=== PATIENT | male | born 1945 | race Caucasian/White ===

== ENCOUNTER 2016-07-18 14:47 | Inpatient (IN) | payer MEDICARE ==
[~2016-07-18] VITALS: Ht 180.3 cm; Wt 72.6 kg
[2016-07-18 15:42] LABS: Basophils # (auto) 0.1 uL; Basophils % (auto) 0.6 % (0.0-2.0); Eosinophils # (auto) 0.1 uL; Eosinophils % (auto) 1.7 % (0.0-7.0); Hematocrit 50.8 % (41.0-53.0); Hemoglobin 16.2 g/dL (13.5-17.5); Lymphocytes # (auto) 1.4 uL; Lymphocytes % (auto) 16.7 % (10.0-50.0); Mean Corpuscular Hemoglobin 28.9 pg (28.0-32.0); Mean Corpuscular Hgb Conc. 31.8 g/dL (32.0-36.0); Mean Corpuscular Volume 90.8 fL (80.0-100.0); Mean Platelet Volume 9.2 fL (7.4-10.4); Monocytes # (auto) 0.5 uL; Monocytes % (auto) 6.1 % (0.0-12.0); Neutrophils # (auto) 6.2 uL; Neutrophils % (auto) 74.9 % (37.0-80.0); Platelet Count (auto) 215 10^3/uL (140-450); Red Cell Distribution Width 14.8 % (11.6-16.0); White Blood Cell 8.2 10^3/uL (4.4-10.8)
[2016-07-18 15:50] LABS: BUN/Creatinine Ratio 13.6; Calcium 9.4 mg/dL (8.5-10.1); INR 1.11 (0.9-1.15); Partial Thromboplastin Time 24.5 sec (22.64-33.71); Potassium 4.3 mmol/L (3.5-5.1); Prothrombin Time 11.4 sec (9.37-12.3)
[2016-07-18 15:59] LABS: Bilirubin, Total 0.6 mg/dL (0.2-1.0); Total Protein 7.5 g/dL (6.4-8.2)
[2016-07-18 16:29] LABS: B-Type Natriuretic Peptide 493.09 pg/mL (0-100)
[2016-07-18 16:30] LABS: Temperature: 22.3 C (20.0-25.0)
[2016-07-18] MEDS ORDERED: SODIUM CHLORIDE 0.9% 1,000 ML IVB ONE (18:06)
[2016-07-18] MEDS ORDERED: ASPirin 81 mg TAB PO ONE (18:15)
[2016-07-18] MEDS ORDERED: ENOXAPARIN SOD 80 MG/0.8ML SYRINGE SC ONE (18:15)
[2016-07-18] MEDS ORDERED: LORazepam 0.5 MG TAB PO PRN (19:00)
[2016-07-18] MEDS ORDERED: ZOLPIDEM TARTRATE 5 MG TAB PO PRN (19:00)
[2016-07-18] MEDS ORDERED: ALUM & MAG HYDROX-SIMETH LIQ(MAALOX) 30 ML PO PRN (19:00)
[2016-07-18] MEDS ORDERED: NITROGLYCERIN 0.4 MG SL TAB SL PRN ×2 (19:00)
[2016-07-18] MEDS ORDERED: ACETAMINOPHEN 325 MG TAB PO PRN (19:00)
[2016-07-18] MEDS ORDERED: MORPHINE SULF INJ 2 MG/ML SYRINGE 1ML IV PRN ×2 (19:00)
[2016-07-18] MEDS ORDERED: ONDANSETRON HCL 4 MG/2 ML VIAL IV PRN (19:00)
[2016-07-18] MEDS ORDERED: DOCUSATE SOD 100 MG CAP PO ONE (19:15)
[2016-07-18] MEDS ORDERED: CLOPIDOGREL BISULFATE 75 MG TAB PO ONE (19:15)
[2016-07-18] MEDS ORDERED: LISINOPRIL 10 MG TAB PO ONE (19:15)
[2016-07-18] MEDS ORDERED: METOPROLOL TARTRATE 50 MG TAB PO ONE (19:15)
[2016-07-18] MEDS ORDERED: PATIENTS OWN MEDICATION PO SCH ×2 (22:00)
[2016-07-18] MEDS ORDERED: SODIUM CHLOR 0.9% PF (SALINE LOCK) 10ML VIAL IV SCH (22:00)
[2016-07-18] MEDS ORDERED: BUDESONIDE (INHALATION) 0.5 MG/2 ML NEB NEB SCH (22:00)
[2016-07-18] MEDS ORDERED: ATORVASTATIN 20 MG TAB PO SCH (22:00)
[2016-07-18] MEDS ORDERED: METOPROLOL TARTRATE 50 MG TAB PO SCH (22:00)
[2016-07-18 23:43] VITALS: BP 115/70
[2016-07-19] MEDS ORDERED: FUROSEMIDE 40 MG TAB PO SCH (06:00)
[2016-07-19] MEDS ORDERED: LISINOPRIL 10 MG TAB PO SCH (10:00)
[2016-07-19] MEDS ORDERED: CLOPIDOGREL BISULFATE 75 MG TAB PO SCH (10:00)
[2016-07-19] MEDS ORDERED: ASPirin 81 mg TAB PO SCH (10:00)
[2016-07-19] MEDS ORDERED: DOCUSATE SOD 100 MG CAP PO SCH (10:00)
[2016-07-19] MEDS ORDERED: POTASSIUM CHL 20 Meq TABLET PO SCH (10:00)
== END 2016-07-18 23:25 | disposition left against medical advice (07) | DRG 314 ==
LOC: ER 14:56 → TELE 14:57
PROVIDERS: ADMIT Internal Medicine; ATTEND Internal Medicine
DX: T82.199A Other mechanical complication of unspecified cardiac device, initial encounter (principal); I50.43 Acute on chronic combined systolic (congestive) and diastolic (congestive) heart failure; E44.0 Moderate protein-calorie malnutrition; I48.92 Unspecified atrial flutter; I13.0 Hypertensive heart and chronic kidney disease with heart failure and stage 1 through stage 4 chronic kidney disease, or unspecified chronic kidney disease; D68.59 Other primary thrombophilia; R07.9 Chest pain, unspecified; F17.210 Nicotine dependence, cigarettes, uncomplicated; I25.10 Atherosclerotic heart disease of native coronary artery without angina pectoris; I48.2 Chronic atrial fibrillation; I73.9 Peripheral vascular disease, unspecified; N18.3 Chronic kidney disease, stage 3 (moderate); Z98.890 Other specified postprocedural states; Z79.899 Other long term (current) drug therapy; Z88.0 Allergy status to penicillin; Z79.01 Long term (current) use of anticoagulants; Z68.22 Body mass index [BMI] 22.0-22.9, adult; J44.9 Chronic obstructive pulmonary disease, unspecified
CPT/HCPCS: 36415; 71010; 71250; 80053; 83880; 84484; 85025; 85610; 85730; 93005; 94640; 96360; 96372